=== PATIENT | female | born 1965 | race Caucasian/White ===

== ENCOUNTER → 2018-07-06 08:40 | Outpatient (CLI) | payer MEDICAID, SELFPAY ==
--- NOTE | 2018-07-06 08:58 | US_ITS ---
US extremity LT limited HISTORY: Probable nodule left forearm ITS.REASON: SKIN NODULE ORDERING PHYSICIAN: Tiesha Daniels PATIENT AGE: 52 years COMPARISON: None TECHNIQUE: There is an isoechoic subcutaneous nodule measuring 10 x 4 mm. Well-circumscribed with good through transmission of sound and may represent a lipoma. No evidence of abscess or cyst. IMPRESSION: Probable 1 cm lipoma corresponding to palpable abnormality left forearm
== END ==
PROVIDERS: Family Provider Internal Medicine Adolescent Medicine; PCP Internal Medicine Adolescent Medicine; Visit Provider Physician Assistant
DX: R22.9 Localized swelling, mass and lump, unspecified (principal)
CPT/HCPCS: 76882

== ENCOUNTER → 2018-10-25 12:26 | Outpatient (CLI) | payer MEDICAID, SELFPAY ==
[2018-10-25 13:47] VITALS: PULSE 85; PULSE 88
== END ==
PROVIDERS: PCP Physician Assistant; Visit Provider Physician Assistant
DX: E66.01 Morbid (severe) obesity due to excess calories (principal); Z01.818 Encounter for other preprocedural examination; I11.9 Hypertensive heart disease without heart failure
CPT/HCPCS: 94060; 94640; 94726; 94729

== ENCOUNTER → 2019-10-03 08:19 | Outpatient (CLI) | payer MEDICAID, SELFPAY ==
--- NOTE | 2019-10-03 08:22 | MR_ITS ---
PROCEDURE: MR HEAD/BRAIN WO/W CON CLINICAL INDICATION: TRANSIENT GLOBAL AMNESIA Lightheadedness with pressure in the head and pain COMPARISON: CT HEAD/BRAIN WO CON from 09/28/2019 TECHNIQUE: Routine multiplanar multi echo sequences are performed without and with gadolinium enhancement. FINDINGS: No midline shift, mass effect, intracranial hemorrhage, or hydrocephalus. No evidence of acute infarction. The cerebellopontine angle, cerebellum, and brainstem are unremarkable. There is normal sibley-white matter differentiation. The hippocampal gyri are unremarkable in the temporal horns are symmetric. No enhancing lesions are apparent. The pituitary, optic chiasm, corpus callosum, and craniocervical junction are unremarkable. No mastoid effusion or sinus air-fluid level IMPRESSION: Negative MRI of the brain without and with contrast. Dictated by: Ramy Jorge MD 10/04/2019 08:54 Electronically signed by Ramy Jorge MD in [place] 10/04/2019 08:54
== END ==
PROVIDERS: PCP Nurse Practitioner; Visit Provider Nurse Practitioner
DX: G45.4 Transient global amnesia (principal)
CPT/HCPCS: 70553; A9576

== ENCOUNTER → 2023-06-16 12:00 | Outpatient (CLI) | payer OTHER, SELFPAY ==
[2023-06-16 18:15] LABS: Adenovirus,PCR Not Detected (NotDetected); Bordetella Pertussis Not Detected (NotDetected); Chlamydophila Pneumoniae, PCR Not Detected (NotDetected); Coronavirus 19, PCR Not Detected (NotDetected); Coronavirus 229E Not Detected (NotDetected); Coronavirus NL63 Not Detected (NotDetected); Coronavirus OC43 Not Detected (NotDetected); Coronovirus HKU1,PCR Not Detected (NotDetected); Human Metapneumovirus Not Detected (NotDetected); Influenza A, PCR Not Detected (NotDetected); Influenza AH1, 2009 Not Detected (NotDetected); Influenza AH1, PCR Not Detected (NotDetected); Influenza AH3,PCR Not Detected (NotDetected); Influenza B, PCR Not Detected (NotDetected); Mycoplasma Pneumoniae, PCR Not Detected (NotDetected); Parainfluenza 1, PCR Not Detected (NotDetected); Parainfluenza 2, PCR Not Detected (NotDetected); Parainfluenza 3, PCR Not Detected (NotDetected); Parainfluenza 4, PCR Not Detected (NotDetected); Respiratory Syncytial Virus Not Detected (NotDetected); Rhinovirus/Enterovirus Not Detected (NotDetected)
== END ==
PROVIDERS: PCP Nurse Practitioner; Visit Provider Student in an Organized Health Care Education/Training Program
DX: Z20.828 Contact with and (suspected) exposure to other viral communicable diseases (principal); R51 Headache
CPT/HCPCS: 87581; 87632; 87798